=== PATIENT | male | born 1960 | race Caucasian/White ===

== ENCOUNTER 2018-03-18 09:43 | Emergency (ER) | payer OTHER ==
[2018-03-18 10:01] VITALS: BP 141/95; PULSE 86; TEMP 98.7; BMI 34.2
--- NOTE | 2018-03-18 10:40 | PDOC ---
History of Present Illness - General Chief Complaint: Pain Stated Complaint: RT ANKLE SWELLING Time Seen by Provider: 03/18/18 10:38 History Source: Patient, Parent(s) Exam Limitations: No Limitations - History of Present Illness Initial Comments: 03/18/18 11:02 Patient is here with complaints of onset of right foot pain and swelling 2 days. Denies any changes in exercise, heavy lifting or trauma. Had significant right knee injury as a child and has had worsening arthritis in that extremity since. Denies history of gout although states had large steak dinner over the weekend. Has used ibuprofen with minimal pain relief. Occurred: reports: yesterday Severity: reports: mild Pain Location: reports: lower extremity (right foot ) Modifying Factors: improves with: None Loss of Consciousness: no loss of consciousness Associated Symptoms (Fall): denies symptoms Past History - Travel Traveled outside of the country in the last 30 days: No Close contact w/someone who was outside of country & ill: No - Past Medical History Allergies/Adverse Reactions: Allergies Allergy/AdvReac Type Severity Reaction Status Date / Time No Known Allergies Allergy Verified 03/18/18 09:57 Home Medications: Ambulatory Orders Naproxen [Naprosyn -] 500 mg PO TID #30 tablet 03/18/18 COPD: No HTN: Yes Hypercholesterolemia: Yes - Surgical History Appendectomy: Yes - Suicide/Smoking/Psychosocial Hx Smoking History: Never smoked Review of Systems - Review of Systems Able to Perform ROS?: Yes Is the patient limited Citizen [place] proficient: Yes Constitutional: Yes: Symptoms Reported, See HPI, Malaise Respiratory: Yes: See HPI. No: Symptoms reported Integumentary: Yes: Symptoms Reported, See HPI, Erythema. No: Bruising Neurological: Yes: Symptoms reported, See HPI All Other Systems: Reviewed and Negative *Physical Exam - Vital Signs Last Vital Signs Temp Pulse Resp BP Pulse Ox 98.7 F 86 16 141/95 97 03/18/18 09:57 03/18/18 09:57 03/18/18 09:57 03/18/18 09:57 03/18/18 09:57 - Physical Exam General Appearance: Yes: Nourished, Appropriately Dressed, Apparent Distress, Mild Distress HEENT: positive: TATI, Normal ENT Inspection, TMs Normal, Pharynx Normal Neck: positive: Supple. negative: Tender Respiratory/Chest: positive: Lungs Clear, Normal Breath Sounds Gastrointestinal/Abdominal: positive: Normal Bowel Sounds, Soft Extremity: positive: Normal Inspection, Normal Range of Motion Integumentary: positive: Normal Color Neurologic: positive: vba programmer II-XII NML intact, Fully Oriented, Alert, Normal Mood/ Affect, Normal Response, Motor Strength / ED Treatment Course - RADIOLOGY Radiology Studies Ordered: Category Date Time Status ANKLE & FOOT-RIGHT* [RAD] Stat Radiology 03/18/18 10:40 Ordered Comments: xcr Progress Note - Progress Note Progress Note: X-ray negative for fractures or dislocation, will treat for an inflammatory process/foot sprain. Clifton wrap applied, and prescription for Naprosyn. And encouraged to follow up with Orth O next week if no improvement. *DC/Admit/Observation/Transfer Diagnosis at time of Disposition: Right foot sprain Qualifiers: Encounter type: initial encounter Qualified Code(s): S93.601A - Unspecified sprain of right foot, initial encounter - Discharge Dispostion Disposition: HOME Condition at time of disposition: Stable Decision to Admit order: No - Prescriptions Prescriptions: Naproxen [Naprosyn -] 500 mg PO TID #30 tablet - Referrals Referrals: Luis Eduardo Quesada MD [Staff Physician] - - Patient Instructions Printed Discharge Instructions: DI for Foot Sprain Additional Instructions: Rest, ice to area on and off for 15 minutes 4-6 times a day Avoid heavy lifting or exercise until pain and swelling is resolved or until further directed Keep area highly elevated to reduce swelling Use splints/Clifton wrap as directed Followup with orthopedist in one to 2 days if not improving, if significantly improved may wait one week for followup with orthopedist May use naprosyn 500mg tabs every 8 hours for 3 days then as needed for pain - Post Discharge Activity Forms/Work/School Notes: Back to Work
[2018-03-18] MEDS ORDERED: IBUPROFEN 600 MG TABLET (FP) PO ONE ×2 (11:40→11:45)
== END 2018-03-18 11:59 | disposition home or self-care (01) ==
LOC: JERFT 09:43
DX: S93.601A Unspecified sprain of right foot, initial encounter (principal); X58.XXXA Exposure to other specified factors, initial encounter; Y93.89 Activity, other specified; Y92.89 Other specified places as the place of occurrence of the external cause; Y99.8 Other external cause status; I10 Essential (primary) hypertension; E78.00 Pure hypercholesterolemia, unspecified
CPT/HCPCS: 73610-TC-RT-FY; 73630-TC-RT-FY; 99281-25

== ENCOUNTER 2018-03-20 09:07 | Emergency (ER) | payer OTHER ==
[2018-03-20 09:26] VITALS: BP 155/88; PULSE 78; TEMP 98.7; BMI 33.2
--- NOTE | 2018-03-20 09:59 | PDOC ---
History of Present Illness - General Chief Complaint: Injury Stated Complaint: REVISIT/ ANKLE INJURY Time Seen by Provider: 03/20/18 09:46 History Source: Patient Exam Limitations: No Limitations - History of Present Illness Initial Comments: CHIEF COMPLAINT: 58 y/o afebrile male, seen here 2 days ago for right foot injury, returned for work note. HISTORY OF PRESENT ILLNESS: The patient states he had an xray here 2 days ago, which was negative. He thought he would be better by today so he told the [employer] OFFICER to only give him a work note for friday and . He states it still hurts a lot and he has to be on his feet all day carrying heavy loads so he needs a work note for today. Vital signs on arrival are within normal limits REVIEW OF SYSTEMS: GENERAL/CONSTITUTIONAL: No fever/chills. No weakness. No weight change. MUSCULOSKELETAL: +right foot pain. No neck or back pain. SKIN: No rash or easy bruising. NEUROLOGIC: No headache, vertigo, loss of consciousness, or loss of sensation. PHYSICAL EXAM: VITAL_SIGNS: within normal limits GENERAL_APPEARANCE: alert, cooperative, no obvious discomfort. MENTAL_STATUS: speech clear, oriented X 3, responds appropriately to questions. NEURO: motor intact and sensory intact in injured extremity. EXTREMITIES: CUCA bandage noted on right foot/ankle. SKIN: warm, dry, good color. Past History - Past Medical History Allergies/Adverse Reactions: Allergies Allergy/AdvReac Type Severity Reaction Status Date / Time No Known Allergies Allergy Verified 03/20/18 09:23 Home Medications: Ambulatory Orders Naproxen 500 mg PO BID PRN #20 tablet 03/20/18 Naproxen [Naprosyn -] 500 mg PO BID 03/20/18 CVA: No COPD: No HTN: Yes Hypercholesterolemia: Yes - Surgical History Appendectomy: Yes - Immunization History Immunization Up to Date: Yes - Suicide/Smoking/Psychosocial Hx Smoking History: Never smoked Information on smoking cessation initiated: No Hx Alcohol Use: No Drug/Substance Use Hx: No Substance Use Type: None *Physical Exam - Vital Signs Last Vital Signs Temp Pulse Resp BP Pulse Ox 98.7 F 78 16 155/88 97 03/20/18 09:24 03/20/18 09:24 03/20/18 09:24 03/20/18 09:24 03/20/18 09:24 Medical Decision Making - Medical Decision Making A/P: 58 y/o male with right foot pain who needs a work note and his prescription change. Rx called to the pharmacy was for TID and should only be BID. Will give work note for today and rx for naproxen BID. Patient instructed to continue with CUCA bandage and ice. The patient verbalizes understanding of all instructions, has no further questions and is awaiting discharge. *DC/Admit/Observation/Transfer Diagnosis at time of Disposition: Right foot sprain Qualifiers: Encounter type: subsequent encounter Qualified Code(s): S93.601D - Unspecified sprain of right foot, subsequent encounter - Discharge Dispostion Disposition: HOME Condition at time of disposition: Good - Prescriptions Prescriptions: Naproxen 500 mg PO BID PRN #20 tablet PRN Reason: Pain - Referrals - Patient Instructions Printed Discharge Instructions: How To Perform RICE (Rest, Ice, Compress, Elevate), DI for Foot Sprain Additional Instructions: Discharge Instructions: -Follow RICE instructions -Take Naproxen if needed for pain WITH FOOD -Return to the ER with any worsening or concerning symptoms Instrucciones de descarga: -Siga las instrucciones de RICE -Colon Naproxen si es necesario para el dolor CON LA COMIDA -Volver a la chip de urgencias con cualquier empeoramiento o sntomas Print Language: LAO - Post Discharge Activity Forms/Work/School Notes: Back to Work
== END 2018-03-20 10:26 | disposition home or self-care (01) ==
LOC: JER 09:07
DX: S93.601D Unspecified sprain of right foot, subsequent encounter (principal); X58.XXXD Exposure to other specified factors, subsequent encounter; Y93.9 Activity, unspecified; Y92.9 Unspecified place or not applicable; I10 Essential (primary) hypertension; E78.00 Pure hypercholesterolemia, unspecified
CPT/HCPCS: 99281-25